=== PATIENT | male | born 1990 | race Hispanic/Latino ===

== ENCOUNTER 2022-02-12 17:00 | Emergency (ER) | payer SELFPAY ==
[2022-02-12] MEDS ORDERED: ONDANSETRON 4 MG/2 ML VIAL ONE (17:57)
[2022-02-12] MEDS ORDERED: NA CHLORIDE 0.9% 1,000 ML ONE (17:57)
[2022-02-12] MEDS ORDERED: MORPHINE 4 MG/ML SYR ONE (17:57)
[2022-02-12 18:02] LABS: Absolute Lymphocytes (CBC) 1.5 K/uL (0.7-4.9); Hematocrit 45.9 % (39.6-49.0); Lymphocytes % 11.3 % (15.3-44.8); MCV 88.7 fL (80-100); MPV 8.8 fL (7.6-11.3); RBC Red Blood Cell Count 5.18 M/uL (4.33-5.43)
[2022-02-12 18:09] LABS: Potassium 3.8 mmol/L (3.5-5.1)
--- NOTE | 2022-02-12 18:49 | RAD REPORT ---
EXAM DESCRIPTION: RAD - Chest Single View - 02/12/2022 6:42 pm CLINICAL HISTORY: PAIN Chest pain. COMPARISON: No comparisons FINDINGS: Portable technique limits examination quality. The lungs are grossly clear. The heart is normal in size. No displaced fractures. IMPRESSION: No acute intrathoracic process suspected.
--- NOTE | 2022-02-12 19:01 | ER ---
Nurse's Notes [facility] Name: Ernesto Low Age: 32 yrs Sex: Male : 1990 Arrival Date: 02/12/2022 Time: 17:03 Bed 17 Private MD: Diagnosis: Myalgia Presentation: 02/12 17:08 Chief complaint: Patient states: pain in the right arm, chest and left leg started ap3 02/07/2022 night. Patient denies any trauma prior to the start of the pain. It is reported the pain keeps him awake at night, and he isn't able to get much rest. He has been seen by his PCP, who prescribed him diclofenac, but that it is not helping. Patient currently states the pain is 10/10. Coronavirus screen: At this time, the client does not indicate any symptoms associated with coronavirus-19. Ebola Screen: No symptoms or risks identified at this time. Initial Sepsis Screen: Does the patient meet any 2 criteria? No. Patient's initial sepsis screen is negative. Does the patient have a suspected source of infection? No. Patient's initial sepsis screen is negative. Risk Assessment: Do you want to hurt yourself or someone else? Patient reports no desire to harm self or others. Onset of symptoms was February 07, 2022. 17:08 Method Of Arrival: Ambulatory ap3 17:08 Acuity: DOMINGA 3 ap3 Triage Assessment: 17:15 General: Appears uncomfortable, Behavior is restless. Pain: Complains of pain in chest, ap3 right arm and left leg Pain currently is 10 out of 10 on a pain scale. Pain began gradually, February. Neuro: Level of Consciousness is awake, alert, obeys commands, Oriented to person, place, time, situation, Speech is normal. Cardiovascular: Patient's skin is warm and dry. Respiratory: Airway is patent Respiratory effort is even, unlabored, Respiratory pattern is regular, symmetrical. Musculoskeletal: Reports pain in chest, right arm and left leg. Historical: - Allergies: 17:14 No Known Allergies; ap3 - Home Meds: 17:14 diclofenac oral [Active]; ap3 - PMHx: 17:14 None; ap3 - Immunization history:: Client reports having NOT received the Covid vaccine. - Social history:: Smoking status: Patient denies any tobacco usage or history of. Screenin:15 Abuse screen: Denies threats or abuse. Nutritional screening: No deficits noted. ap3 Tuberculosis screening: No symptoms or risk factors identified. 17:24 Fall Risk None identified. 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 pt c/o pain right tw2 bicep, left thigh, and right pectoral muscle. 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 General: Appears in no apparent distress. uncomfortable, Behavior is calm, cooperative, appropriate for age. Pain: Complains of pain in anterior aspect of right upper chest and right breast and left leg and right arm. Cardiovascular: Denies shortness of breath, Capillary refill < 3 seconds Patient's skin is warm and dry. Respiratory: Airway is patent Respiratory effort is even, unlabored, Respiratory pattern is regular, symmetrical. Musculoskeletal: Capillary refill < 3 seconds, Range of motion: intact in all extremities. 18:58 Reassessment: No changes from previously documented assessment. Patient and/or family tw2 updated on plan of care and expected duration. Pain level reassessed. Patient is alert, oriented x 3, equal unlabored respirations, skin warm/dry/pink. Patient states symptoms have not improved. 19:15 Reassessment: No changes from previously documented assessment. Patient and/or family tw2 updated on plan of care and expected duration. Pain level reassessed. Patient is alert, oriented x 3, equal unlabored respirations, skin warm/dry/pink. Patient states symptoms have not improved. Vital Signs: 17:08 BP 157 / 97; Pulse 103; Temp 98.4; Pulse Ox 98% ; Weight 78.93 kg; Height 5 ft. 6 in. ap3 (167.64 cm); 17:56 BP 164 / 92; Pulse 93; Resp 17; Pulse Ox 98% on R/A; tw2 18:20 Pain 8/10; tw2 18:58 BP 155 / 92; Pulse 87; Resp 17; Pulse Ox 99% on R/A; tw2 17:08 Body Mass Index 28.08 (78.93 kg, 167.64 cm) ap3 ED Course: 17:03 Patient arrived in ED. am2 17:14 Triage completed. ap3 17:15 Arm band placed on right wrist. ap3 17:18 Bed in low position. Call light in reach. Pulse ox on. NIBP on. tw2 17:24 Amy Carter, ESPINOZA is Primary Nurse. tw2 17:24 Ashley Trent F[facility]-C [facility]. kb 17:24 Salvatore Fermin MD is Attending Physician. kb 17:49 Inserted saline lock: 20 gauge in left antecubital area, using aseptic technique. Blood tw2 collected. 18:44 Chest Single View XRAY In Process Unspecified. EDMS 19:15 No provider procedures requiring assistance completed. IV discontinued, intact, tw2 bleeding controlled, No redness/swelling at site. Pressure dressing applied. Administered Medications: 17:51 Drug: NS 0.9% 1000 ml Route: IV; Rate: 1000 ml; Site: left antecubital; tw2 18:59 Follow up: Response: No adverse reaction; IV Status: Completed infusion; IV Intake: tw2 1000ml 19:06 Follow up: Response: No adverse reaction; IV Status: Completed infusion; IV Intake: tw2 1000ml 17:51 Drug: Zofran (Ondansetron) 4 mg Route: IVP; Site: left antecubital; tw2 18:20 Follow up: Response: No adverse reaction tw2 17:56 Drug: morphine 4 mg Route: IVP; Infused Over: 4 mins; Site: left antecubital; tw2 18:20 Follow up: Pain 8/10 Adult; Response: No adverse reaction; Pain is unchanged, physician tw2 notified 19:08 Drug: [place] (HYDROcodone-acetaminophen) 10 mg-325 mg 1 tabs Route: PO; tw2 19:15 Follow up: Response: No adverse reaction tw2 Medication: 17:24 VIS not applicable for this client. tw2 Intake: 18:59 IV: 1000ml; Total: 1000ml. tw2 19:06 IV: 1000ml; Total: 2000ml. tw2 Outcome: 19:00 Discharge ordered by . kb 19:15 Discharged to home ambulatory, with significant other. tw2 19:15 Condition: stable 19:15 Discharge instructions given to patient, significant other, Instructed on discharge instructions, follow up and referral plans. no drinking with medication, no driving heavy equipment, medication usage, Demonstrated understanding of instructions, follow-up care, medications, Prescriptions given X 1. 19:15 Patient left the ED. tw2 Signatures: Dispatcher [employer] EDAshley Helms, RAOC MEGHAN-Amy Romano RN RN tw2 Maggie Hernandez am2 Maggie Sky RN RN ap3
--- NOTE | 2022-02-12 19:01 | EDPHYS ---
Physician Documentation [facility] Name: Ernesto Low Age: 32 yrs Sex: Male : 1990 Arrival Date: 02/12/2022 Time: 17:03 Bed 17 Private MD: ED Physician Salvatore Fermin HPI: 02/12 18:49 This 32 yrs old Male presents to ER via Ambulatory with complaints of Leg kb Pain, Arm Pain. 18:49 The patient presents with pain, that is acute, tenderness. The complaints affect the kb left upper thigh and right bicep and anterior aspect of right upper chest. Context: The problem was sustained at an unknown site, resulted from an unknown cause, the patient can fully bear weight, the patient is able to ambulate, Problem is a result from a previous injury: No. Onset: The symptoms/episode began/occurred last week. Modifying factors: The symptoms are alleviated by nothing. the symptoms are aggravated by nothing. Associated signs and symptoms: The patient has no apparent associated signs or symptoms. Treatment prior to arrival includes: no previous treatment. Severity of symptoms: At their worst the symptoms were moderate, in the emergency department the symptoms are unchanged. The patient has not experienced similar symptoms in the past. The patient has not recently seen a physician. Pt reports pain and tenderness to right upper arm, left upper thigh and right chest. Areas of pain/tenderness are small with no signs of infection/cellulitis. Pt denies injury or trauma. Denies recent vaccinations, illness. 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 Historical: - Allergies: 17:14 No Known Allergies; ap3 - Home Meds: 17:14 diclofenac oral [Active]; ap3 - PMHx: 17:14 None; ap3 - Immunization history:: Client reports having NOT received the Covid vaccine. - Social history:: Smoking status: Patient denies any tobacco usage or history of. ROS: 18:39 Constitutional: Negative for fever, chills, and weight loss. kb 18:39 Cardiovascular: Positive for chest pain, of the anterior aspect of right upper chest. 18:39 MS/extremity: Positive for pain, of the right bicep and left upper thigh. 18:39 All other systems are negative. Exam: 18:39 Constitutional: This is a well developed, well nourished patient who is awake, alert, kb and in no acute distress. Head/Face: Normocephalic, atraumatic. ENT: Moist Mucous membranes Cardiovascular: Regular rate and rhythm with a normal S1 and S2. No gallops, murmurs, or rubs. No pulse deficits. Respiratory: Respirations even and unlabored. No increased work of breathing. Talking in full sentences Abdomen/GI: Soft, non-tender. No distention Skin: Warm, dry with normal turgor. Normal color. Neuro: Awake and alert, GCS 15, oriented to person, place, time, and situation. Moves all extremities. Normal gait. Psych: Awake, alert, with orientation to person, place and time. Behavior, mood, and affect are within normal limits. 18:39 Chest/axilla: Inspection: normal, Palpation: tenderness, that is moderate, of the anterior aspect of right upper chest, that totally reproduces the patient's complaints. 18:39 Musculoskeletal/extremity: Extremities: grossly normal except: noted in the left upper thigh: pain, tenderness, noted in the right bicep: pain, tenderness, ROM: intact in all extremities, Circulation is intact in all extremities. Sensation intact. Weight bearing: able to fully bear weight. Vital Signs: 17:08 BP 157 / 97; Pulse 103; Temp 98.4; Pulse Ox 98% ; Weight 78.93 kg; Height 5 ft. 6 in. ap3 (167.64 cm); 17:56 BP 164 / 92; Pulse 93; Resp 17; Pulse Ox 98% on R/A; tw2 18:20 Pain 8/10; tw2 18:58 BP 155 / 92; Pulse 87; Resp 17; Pulse Ox 99% on R/A; tw2 17:08 Body Mass Index 28.08 (78.93 kg, 167.64 cm) ap3 MDM: 17:24 Patient medically screened. kb 18:38 Data reviewed: vital signs, nurses notes. Data interpreted: Pulse oximetry: on room air kb is 98 %. Interpretation: normal. Counseling: I had a detailed discussion with the patient and/or guardian regarding: the historical points, exam findings, and any diagnostic results supporting the discharge/admit diagnosis, lab results, radiology results, the need for outpatient follow up, a family practitioner, to return to the emergency department if symptoms worsen or persist or if there are any questions or concerns that arise at home. 02/12 17:37 Order name: CBC with Diff; Complete Time: 18:23 kb 02/12 17:37 Order name: Basic Metabolic Panel; Complete Time: 18:10 kb 02/12 17:40 Order name: CK; Complete Time: 18:38 kb 02/12 18:24 Order name: Chest Single View XRAY; Complete Time: 18:58 kb 02/12 17:37 Order name: IV Start; Complete Time: 17:49 kb Administered Medications: 17:51 Drug: NS 0.9% 1000 ml Route: IV; Rate: 1000 ml; Site: left antecubital; tw2 18:59 Follow up: Response: No adverse reaction; IV Status: Completed infusion; IV Intake: tw2 1000ml 19:06 Follow up: Response: No adverse reaction; IV Status: Completed infusion; IV Intake: tw2 1000ml 17:51 Drug: Zofran (Ondansetron) 4 mg Route: IVP; Site: left antecubital; tw2 18:20 Follow up: Response: No adverse reaction tw2 17:56 Drug: morphine 4 mg Route: IVP; Infused Over: 4 mins; Site: left antecubital; tw2 18:20 Follow up: Pain 8/10 Adult; Response: No adverse reaction; Pain is unchanged, physician tw2 notified 19:08 Drug: [place] (HYDROcodone-acetaminophen) 10 mg-325 mg 1 tabs Route: PO; tw2 19:15 Follow up: Response: No adverse reaction tw2 Disposition: 02/13 07:22 Co-signature as Attending Physician, Salvatore Fermin MD. rn Disposition Summary: 02/12/22 19:00 Discharge Ordered Location: Home kb Condition: Stable kb Diagnosis - Myalgia kb Followup: kb - With: Emergency Department - When: As needed - Reason: Worsening of condition Followup: kb - With: Private Physician - When: 2 - 3 days - Reason: Recheck today's complaints, Continuance of care, Re-evaluation by your physician Discharge Instructions: - Muscle Pain, Adult kb - Discharge Summary Sheet tw2 Forms: - Medication Reconciliation Form kb - Thank You Letter kb - Antibiotic Education kb - Work release form tw2 - Prescription Opioid Use kb Prescriptions: - Cyclobenzaprine 10 mg Oral Tablet - take 1 tablet by ORAL route every 8 hours As needed; 15 tablet; Refills: 0, kb Product Selection Permitted Signatures: Dispatcher [employer] Ashley Stinson, ELEVATOR PILOT-C ELEVATOR PILOT-Ckb Salvatore Fermin MD MD rn Wise, Tara, RN RN tw2 Maggie Sky RN RN ap3
[2022-02-12] MEDS ORDERED: HYDROCODONE/APAP 5/325 MG TAB ONE (19:17)
[2022-02-12 19:29] VITALS: TEMP 98.4
[2022-02-12 19:37] VITALS: BP 155/92; O2SAT 99
== END 2022-02-12 19:15 | disposition home or self-care (01) ==
LOC: ER 17:00
DX: M79.10 Myalgia, unspecified site (principal); M79.601 Pain in right arm; R07.9 Chest pain, unspecified; M79.605 Pain in left leg
CPT/HCPCS: 36415; 71045; 80048; 82550; 85025; 96361; 96374; 96375; 99284; J2405; J7030